=== PATIENT | female | born 1980 | race Caucasian/White ===

== ENCOUNTER 2020-02-04 08:54 | Emergency (ER) | payer OTHER, SELFPAY ==
[2020-02-04 09:03] VITALS: BP 113/60; PULSE 142; RESP 16; TEMP 36.1; O2SAT 100
--- NOTE | 2020-02-04 09:11 | ED.FEMALEGU ---
HPI - Female Genitourinary General Chief complaint: Urogenital-Female Stated complaint: poss kidney infec Time Seen by Provider: 02/04/20 09:11 Source: patient and RN notes reviewed History of Present Illness HPI Narrative: Patient is a 39-year-old female who presents the urgent care with complaints of a possible UTI. Patient states her symptoms started approximately 6 days ago and have progressed over the last 2 to 4 days. Patient states it started with urinary frequency and urgency and has now developed into nausea, 2 episodes of vomiting the last 24 hours, suprapubic tenderness and right-sided low back pain. Patient denies of any fever. States that she did have a UTI approximately 1 year ago. Patient has been using Tylenol and ibuprofen as needed. No other acute complaints. Patient is overly dramatic and anxious due to having to wear her mask over her nose. Otherwise, no acute distress noted. Patient aware of the plan of care. Some parts of this dictation were generated by voice recognition software and may contain typographical and/or grammatical inaccuracies. Related Data Allergies Allergy/AdvReac Type Severity Reaction Status Date / Time No Known Allergies Verified 03/10/10 20:27 Review of Systems Review of Systems: Narrative: CONSTITUTIONAL: Denies fever, chills, or sweats. EYES: Denies visual changes, redness, or discharge. ENT: Denies rhinorrhea, congestion, sore throat, or otalgia. CARDIOVASCULAR: Denies chest pain, palpitations, or edema. RESPIRATORY: Denies cough or dyspnea. GASTROINTESTINAL: Reports of nausea and vomiting GENITOURINARY: Reports of dysuria, urgency, frequency, suprapubic pressure SKIN: Denies rash or itching. MUSCULOSKELETAL: Reports of right-sided low back pain NEUROLOGIC: Denies headache, numbness, or weakness. All other systems reviewed are negative, except as documented in HPI. PMFSH Comments At the time of my signature, I reviewed and agree with the nursing past medical, surgical, social, and family history. There is no relevant family history pertinent to the patient complaint. Exam Narrative: Exam Narrative: GENERAL: This is a well-nourished, well-developed patient, visibly anxious due to mask wearing HEAD: normocephalic, atraumatic. EYES: PERRL. Sclera clear/white. Vision is grossly intact. EARS: External ears normal NOSE: External nose normal with no obvious nasal discharge, nares without redness, no rhinorrhea. THROAT: Mucous membranes moist NECK: Neck supple GASTROINTESTINAL: Abdomen soft, moderate suprapubic tenderness, nondistended. Bowel sounds are hypo-active. SKIN: warm, intact with no suspicious lesions or rash, good texture and turgor. NEURO: awake, alert, and oriented to person, place and time. There were no obvious focal neurologic abnormalities. EXTREMITIES: No clubbing, cyanosis, or edema. BACK: Right CVA tenderness Course Vital Signs Vital signs: Vital Signs Temperature 96.9 F L 02/04/20 09:03 Pulse Rate 142 H 02/04/20 09:03 Respiratory Rate 16 02/04/20 09:03 Blood Pressure 113/60 02/04/20 09:03 Pulse Oximetry 100 02/04/20 09:03 Temperature 96.9 F L 02/04/20 09:03 Pulse Rate 142 H 02/04/20 09:03 Respiratory Rate 16 02/04/20 09:03 Blood Pressure 113/60 02/04/20 09:03 Pulse Oximetry 100 02/04/20 09:03 Reviewed MDM - Female Genitourinary MDM Narrative Medical decision making narrative: Reviewed lab results with the patient. She is aware that urine analysis is indicative of a urinary tract infection. Advised the patient to increase water intake and avoid sugary and caffeinated drinks. Complete oral antibiotic regimen as prescribed. Be sure to eat and drink with the medication. Take Zofran approximately 10 to 15 minutes prior to oral antibiotic. Use Pyridium as needed for bladder spasms. We will culture the urine and call if medication needs to be changed, based on culture results. If you develop any increase in symptoms asso
[2020-02-04 09:25] VITALS: PULSE 100
== END 2020-02-04 09:25 | disposition home or self-care (01) ==
PROVIDERS: Emergency Provider Nurse Practitioner Family
DX: N39.0 Urinary tract infection, site not specified (principal)
CPT/HCPCS: 81003; 87077; 87086; 87088; 87186; 99203; G0463

== ENCOUNTER 2022-06-05 09:16 | Emergency (ER) | payer OTHER, SELFPAY ==
[2022-06-05 09:21] VITALS: BP 101/51; PULSE 98; RESP 16; TEMP 37.2; O2SAT 99
--- NOTE | 2022-06-05 09:36 | ED.SKABFB ---
HPI - Skin/Abscess/Foreign Bdy General Stated complaint: Skin Problem/Hands Source: patient and RN notes reviewed History of Present Illness HPI narrative: 41-year-old female presents urgent care with complaints of a dry rash to bilateral palms x1 month. Patient denies any itching burning. Denies any latex glove use. Patient states she feels like there has been no improvement despite her use of Aquaphor. Denies any fevers, chills, or vomiting. Some parts of this dictation were generated by voice recognition software and may contain typographical and/or grammatical inaccuracies. Related Data Allergies Allergy/AdvReac Type Severity Reaction Status Date / Time No Known Allergies Verified 06/05/22 09:45 Review of Systems Review of Systems: CONSTITUTIONAL: Denies fever, chills, or sweats. EYES: Denies visual changes, redness, or discharge. ENT: Denies otalgia and sore throat CARDIOVASCULAR: Denies chest pain, palpitations, or edema. RESPIRATORY: Denies cough or dyspnea. GASTROINTESTINAL: Denies abdominal pain, nausea, vomiting, or diarrhea. GENITOURINARY: Denies dysuria or hematuria. SKIN: Rash to bilateral palms of the hands MUSCULOSKELETAL: Denies back pain, joint pain, or myalgia. NEUROLOGIC: Denies headache, numbness, or weakness. PMFSH Comments At the time of my signature, I reviewed and agree with the nursing past medical, surgical, social, and family history. There is no relevant family history pertinent to the patient complaint. Exam Narrative: GENERAL: This is a well-nourished, well-developed patient, in no apparent distress. HEAD: normocephalic, atraumatic. EYES: PERRL. Sclera clear/white. Vision is grossly intact. EARS: External ears normal, auditory canals clear and without drainage, TMs normal without perforation. Hearing grossly intact. NOSE: External nose normal with no obvious nasal discharge, nares without redness, no rhinorrhea. THROAT: Mucous membranes moist, posterior pharynx clear. NECK: Neck supple, non-tender without lymphadenopathy, masses or thyromegaly. CARDIOVASCULAR: Regular rate and rhythm without murmurs, gallops, or rubs. RESPIRATORY: Clear to auscultation. Breath sounds equal bilaterally. No wheezes, rales, or rhonchi. GASTROINTESTINAL: Abdomen soft, non-tender, nondistended. Bowel sounds are active. No hepato-splenomegaly, or palpable masses. No guarding. SKIN: dry, flaky, rash to bilateral palms of hands. Minimal erythema. NO drainage. NEURO: awake, alert, and oriented to person, place and time. There were no obvious focal neurologic abnormalities. EXTREMITIES: No clubbing, cyanosis, or edema. No joint tenderness, effusion, or edema noted. BACK: Nontender without deformity or crepitance. No flank tenderness. Course Course Level of Care: Express Care Visit Vital Signs Vital signs: Vital Signs Temperature 99 F 06/05/22 09:21 Pulse Rate 98 06/05/22 09:21 Respiratory Rate 16 06/05/22 09:21 Blood Pressure 101/51 L 06/05/22 09:21 Pulse Oximetry 99 06/05/22 09:21 Oxygen Delivery Room Air 06/05/22 09:21 Temperature 99 F 06/05/22 09:21 Pulse Rate 98 06/05/22 09:21 Respiratory Rate 16 06/05/22 09:21 Blood Pressure 101/51 L 06/05/22 09:21 Pulse Oximetry 99 06/05/22 09:21 Oxygen Delivery Room Air 06/05/22 09:21 Reviewed MDM - Skin/Abscess/Foreign Bdy MDM Narrative Medical decision making narrative: Complaint steroid cream twice a day and may alternate with your Aquaphor ointment. Follow-up with dermatology. Differential Diagnosis Differential diagnosis: Likely abscess of skin or subcutaneous tissue, viral exanthem, allergic reaction to drug and eczema Critical Care Time Critical Care Time Critical Care Time: No Discharge Plan Discharge Clinical Impression: Rash Patient Disposition: Home, Self-Care Condition: Stable Instructions: Acute Rash (ED) Additional Instructions: Complaint steroid cream twice a day and may alternate wit
== END 2022-06-05 10:01 | disposition home or self-care (01) ==
PROVIDERS: Emergency Provider Nurse Practitioner Family; PCP Emergency Medicine
DX: R21 Rash and other nonspecific skin eruption (principal)
CPT/HCPCS: 99213; G0463